=== PATIENT | female | born 1945 | race Caucasian/White ===

== ENCOUNTER 2018-09-27 07:15 | Inpatient (IN) | payer OTHER ==
[2018-09-27] MEDS ORDERED: THROMBIN (BOVINE) 20,000 UNIT VIAL TP ONE (11:24)
[2018-09-27] MEDS ORDERED: BUPIVACAINE 0.25% 30 ML SDV ONE (11:25)
[2018-09-27] MEDS ORDERED: CHLORHEXIDINE GLUC HIBICLENS 118 ML BTL TP ONE (11:25)
[2018-09-27] MEDS ORDERED: EPINEPHrine 1 MG/ML INJ ONE (11:25)
[2018-09-27] MEDS ORDERED: BACITRACIN 50,000 UNITS/10 ML SYR IRR ONE (11:26)
[2018-09-27] MEDS ORDERED: THROMBIN (BOVINE) 5,000 UNIT VIAL TP ONE (11:27)
[2018-09-27] MEDS ORDERED: morphINE PF 0.2 MG in SYRINGE INTRATHECAL 1 SYR IT ONE (11:39)
[2018-09-27] MEDS ORDERED: ACETAMINOPHEN 500 MG TAB PO ONE (11:39)
[2018-09-27] MEDS ORDERED: ceFAZolin 2 GM/DEXTROSE 100 ML IV ONE (11:39)
[2018-09-27] MEDS ORDERED: GABAPENTIN 300 MG CAP PO ONE (11:39)
[2018-09-27] MEDS ORDERED: morphINE SR 15 MG TAB PO ONE (11:39)
[2018-09-27] MEDS ORDERED: LR 1,000 ML IV ONE (11:40)
--- NOTE | 2018-09-27 13:08 | PDHPUP ---
History & Physical Update H&P update statement: This history and physical update is based on an assessment of the patient which was completed after admission or registration (within 24 hours), but prior to the surgery/procedure. H&P update: H&P reviewed & patient examined, no change in patient's condition since H&P completed (Consents signed and site marked. All questions answered.)
[2018-09-27] MEDS ORDERED: PROPOFOL/EMULSION 500 MG/50 ML BOTTLE IV ONE ×3 (13:16→16:06)
[2018-09-27] MEDS ORDERED: fentaNYL 250 MCG/5 ML INJ ONE (13:18)
[2018-09-27] MEDS ORDERED: MIDAZOLAM 2 MG/2 ML VIAL ONE (13:28)
[2018-09-27] MEDS ORDERED: MIDAZOLAM 2 MG/2 ML VIAL IVP ONE (14:05)
[2018-09-27] MEDS ORDERED: HYDROmorphONE/DILAUDID 2 MG/ML INJ ONE (14:50)
--- NOTE | 2018-09-27 15:08 | PDANEPAE ---
ANE History of Present Illness 73 year old female for L2-L4 laminectomy and TLIF. Obesity, HTN and history of TIA. ANE Past Medical History - Cardiovascular History Hx Hypertension: Yes Hx Arrhythmias: No Hx Chest Pain: No Hx Coronary Artery / Peripheral Vascular Disease: No Hx CHF / Valvular Disease: No Hx Palpitations: No Cardiovascular History Comment: high chol. pcp monitors bp medications - Pulmonary History Hx COPD: No Hx Asthma/Reactive Airway Disease: No Hx Recent Upper Respiratory Infection: No Hx Oxygen in Use at Home: No Hx Sleep Apnea: Yes Sleep Apnea Screening Result - Last Documented: Positive Pulmonary History Comment: karley triggers - Neurologic History Hx Cerebrovascular Accident: Yes Hx Seizures: No Hx Dementia: No Neurologic History Comment: CVA - on plavix found out via MRI for vertigo. no more issues with vertigo. feet have recently started tingling - Endocrine History Hx Diabetes: No - Renal History Hx Renal Disorders: No - Liver History Hx Hepatic Disorders: No - Neurological & Psychiatric Hx Hx Neurological and Psychiatric Disorders: No - Cancer History Hx Cancer: No - Congenital Disorder History Hx Congenital Disorders: No - GI History Hx Gastrointestinal Disorders: Yes Gastrointestinal History Comment: hx of lap band - Other Health History Other Health History: bleeds easily - Chronic Pain History Chronic Pain: Yes (lower spine down to legs) - Surgical History Prior Surgeries: left TKA. lap band. hysterectomy. ruptured ectopic . tonsillectomy as child ANE Review of Systems Review of systems is: negative Review of Systems: - Exercise capacity METS (RN): 4 METS ANE Patient History - Allergies Allergies/Adverse Reactions: latex Allergy (Verified 09/27/18 12:05) Rash - Home Medications Home Medications: Atorvastatin Calcium [Lipitor 20 mg (*)] 10 mg PO DAILY 05/10/15 [Last Taken 01/13] Benazepril HCl 40 mg PO DAILY 09/16/18 [Last Taken 09/26/18] Cholecalciferol Vit D3 [Vitamin D3 (*)] 1,000 units PO DAILY 09/16/18 [Last Taken 09/20/18] Clopidogrel Bisulfate [Plavix (*)] 75 mg PO DAILY 09/16/18 [Last Taken 09/20/18] Cyanocobalamin [Vitamin B12 (*)] 1,000 mcg PO DAILY 09/16/18 [Last Taken ] Gabapentin [Neurontin 300 MG (*)] 300 mg PO TID 09/16/18 [Last Taken Unknown] Hydrochlorothiazide [HCTZ (*)] 25 mg PO HS 09/16/18 [Last Taken 09/26/18] - NPO status NPO Since - Liquids (Date): 09/27/18 NPO Since - Liquids (Time): 08:00 NPO Since - Solids (Date): 09/26/18 NPO Since - Solids (Time): 20:00 - Smoking Hx Smoking Status: Never smoked - Family Anes Hx Family Hx Anesthesia Complications: none ANE Labs/Vital Signs - Vital Signs Blood Pressure: 163/83 Heart Rate: 76 Respiratory Rate: 19 O2 Sat (%): 95 Height: 157.48 cm Weight: 90.718 kg ANE Physical Exam - Airway Neck exam: FROM Mallampati Score: Class 3 Mouth exam: small mouth opening - Pulmonary Pulmonary: no respiratory distress - Cardiovascular Cardiovascular: regular rate and rhythym - ASA Status ASA Status: III ANE Anesthesia Plan Anesthesia Plan: general endotracheal anesthesia Specialized Airway: video laryngoscope
[2018-09-27] MEDS ORDERED: ONDANSETRON 4 MG/2 ML VIAL IVP PRN ×2 (15:10→15:16)
[2018-09-27] MEDS ORDERED: ALBUTEROL 3 ML DEYVIAL IH PRN (15:10)
[2018-09-27] MEDS ORDERED: DEXAMETHASONE 4 MG/ML VIAL IVP PRN (15:10)
[2018-09-27] MEDS ORDERED: LABETALOL HCL 5 MG/ML 20 ML MDV IVP PRN (15:10)
[2018-09-27] MEDS ORDERED: LR 500 ML IV PRN (15:10)
[2018-09-27] MEDS ORDERED: fentaNYL 100 MCG/2 ML INJ IVP PRN (15:10)
[2018-09-27] MEDS ORDERED: HYDROmorphONE/DILAUDID 2 MG/ML INJ IVP PRN (15:10)
[2018-09-27] MEDS ORDERED: NALOXONE HCL 0.4 MG/ML INJ IVP PRN (15:10)
[2018-09-27] MEDS ORDERED: POLYETHYLENE GLYCOL 3350 17 GM PKT PO PRN (15:16)
[2018-09-27] MEDS ORDERED: diphenhydrAMINE 25 MG CAP PO PRN (15:16)
[2018-09-27] MEDS ORDERED: MAGNESIUM HYDROXIDE 30 ML UDCUP PO PRN (15:16)
[2018-09-27] MEDS ORDERED: LACTULOSE 20 GM/30 ML UDCUP PO PRN (15:16)
[2018-09-27] MEDS ORDERED: ONDANSETRON DISINTEGRATING 4 MG TAB PO PRN (15:16)
[2018-09-27] MEDS ORDERED: BISACODYL 10 MG SUPP PR PRN (15:16)
[2018-09-27] MEDS ORDERED: METHOCARBAMOL 750 MG TAB PO PRN (15:16)
[2018-09-27] MEDS ORDERED: DESFLURANE 240 ML BOTTLE IH ONE (16:59)
--- NOTE | 2018-09-27 17:06 | PDMN ---
Medical Necessity Medical necessity: Pt meets inpt criteria per MD order and [facility], Lumbar Fusion, Medicare inpt only list. 73 y/o admitted for L2, L3, L4 TLIF, lami- synovial cyst resection, L2-L4 PSF and post-op care.
--- NOTE | 2018-09-27 17:46 | POSTANESTH ---
Post Anesthetic Evaluation Cardiovascular Status: Normal, Stable Respiratory Status: Normal, Stable Level of Consciousness/Mental Status: Moderately Sleepy Pain Control: Adequate, Prn Tx Ordered Nausea/Vomiting Control: Adequate, Prn Tx Ordered Complications Possibly Related to Anesthesia: None Noted
[2018-09-27] MEDS: ceFAZolin 2 GM/DEXTROSE 100 ML IV SCH (17:56)
--- NOTE | 2018-09-27 18:52 | NEUSURGPN ---
Date of Surgery: 09/27/18 Post Op Day: 0 Assessment/Plan: POD # 1 s/p L2-L4 meagan and posterior fusion.TLIF L2/3/4 with synovial cyst resection - doing well overall with no acute issues - routine post-operative care - will admit to the floor and mobilize in am - FREDO to suction - PT/To/therapies - brace whenever out of bed Subjective: pain appears to be well controlled with no new complaints Objective: SILVERIO X 4 to command full strength with bilateral LE hip flexion/extension, plantar/dorsiflexion - sensation intact throughout B LE - dressing C/D/I - FREDO to thumbprint suction - Physician Patient Seen by DrRomana: Jennifer Neurosurgery Physical Exam - Vitals, I&O, Labs I and O 09/26/18 09/27/18 09/28/18 05:59 05:59 05:59 Intake Total 2300 Output Total 535 Balance 1765 Weight 90.718 kg Intake: IV Intake (ml) 2200 IV Infused (ml) 100 ceFAZolin 2 GM/DEXTROSE 100 100 ml @ 200 mls/hr IV Q8H NILSON Rx#:[id number] Output: Urine (ml) 200 Catheter 200 Estimated Blood Loss (ml) 300 FREDO Drain Output (ml) 35 #1 Posterior Back Edgardo 35 Otto Vital Signs Temp Pulse Resp BP Pulse Ox 36.6 C 72 16 125/65 H 93 09/27/18 18:07 09/27/18 17:48 09/27/18 18:47 09/27/18 18:47 09/27/18 18:47 ICD10 Worksheet Patient Problems: Problems Problem Status Onset Lumbago with sciatica, unspecified side Acute - ICD10 Problem Qualifiers (1) Lumbago with sciatica, unspecified side Qualifiers: Chronicity: chronic Back pain laterality: midline Sciatica laterality: bilateral sciatica Qualified Code(s): M54.41 - Lumbago with sciatica, right side; M54.42 - Lumbago with sciatica, left side; M54.42 - Lumbago with sciatica , left side; G89.29 - Other chronic pain; G89.29 - Other chronic pain
[2018-09-27] MEDS: GABAPENTIN 300 MG CAP PO SCH ×2 (20:05→21:08)
[2018-09-27] MEDS: HYDROCHLOROTHIAZIDE 25 MG TAB PO SCH (21:06)
[2018-09-27] MEDS: SENNOSIDES/DOCUSATE SODIUM TAB PO SCH (21:06)
[2018-09-27] MEDS: FAMOTIDINE 20 MG TAB PO SCH (21:08)
[2018-09-27] MEDS: ACETAMINOPHEN 500 MG TAB PO SCH (21:08)
[2018-09-27] MEDS ORDERED: DILTIAZEM 25 MG/5 ML VIAL IVP ONE (22:30)
[2018-09-27] MEDS ORDERED: DILTIAZEM 125 MG in D5W 125 ML IV SCH (23:45)
--- NOTE | 2018-09-28 00:26 | PDHOSCONS ---
History and Physical - History of Present Illness I WAS CALLED TO SEE THIS PATIENT IS PART OF A STAT TEAM FOR POSTOPERATIVE TACHYCARDIA HEART RATE 170S TO 180S This patient came into the hospital electively for lumbar spine surgery which she had done earlier today by Dr. Kay without complication. She has been on the 3 [place] unit since then feeling quite well. She has been eating, has no fever symptoms no neurologic symptoms no cardiac or pulmonary symptoms. Nurses note her to be very tachycardia and EKG has showed rapid atrial fibrillation. The patient has no chest pain palpitations shortness of breath leg pain or swelling. There is no fever The patient has no history of atrial fibrillation or any other cardiac history of concern. She had a childhood heart murmur which apparently still present but has never caused her physicians any concern. She has not recurred followed regularly for this. She did have some cardiology assessment including a echocardiogram before this surgery and says there were no concerning findings but I do not have any records available. The patient is a never smoker, does not drink any concerning alcohol, does not have known thyroid troubles, does not have any significant family history of heart disease that she is aware of. She has no thromboembolic disease history. She has minimal pain from her surgery at this time. History Information - Allergies/Home Medication List Allergies/Adverse Reactions: latex Allergy (Verified 09/27/18 12:05) Rash Home Medications: Atorvastatin Calcium [Lipitor 20 mg (*)] 10 mg PO DAILY 05/10/15 [Last Taken 01/13] Benazepril HCl 40 mg PO DAILY 09/16/18 [Last Taken 09/26/18] Cholecalciferol Vit D3 [Vitamin D3 (*)] 1,000 units PO DAILY 09/16/18 [Last Taken 09/20/18] Clopidogrel Bisulfate [Plavix (*)] 75 mg PO DAILY 09/16/18 [Last Taken 09/20/18] Cyanocobalamin [Vitamin B12 (*)] 1,000 mcg PO DAILY 09/16/18 [Last Taken ] Gabapentin [Neurontin 300 MG (*)] 300 mg PO TID 09/16/18 [Last Taken Unknown] Hydrochlorothiazide [HCTZ (*)] 25 mg PO HS 09/16/18 [Last Taken 09/26/18] I have personally reviewed and updated: family history, medical history, social history, surgical history - Past Medical History arthritis, CVA Additional medical history: Lumbar spine stenosis - Social History Smoking Status: Never smoked Alcohol Use: Rarely Drug Use: None Additional social history: lives with her who is a Pharm D Review of Systems Review of Systems: ROS: 10pt was reviewed & negative except for what was stated in HPI & below Physical Exam Physical Exam: Her initial vital signs were normal after her surgery, however this evening she had sudden onset of tachycardia with heart rates to the 170s and 80s and she still having irregular heart rate in the 170s 180s as I visit her. Temp Pulse Resp BP Pulse Ox 36.6 C 78 16 122/65 H 97 09/28/18 00:00 09/28/18 00:00 09/28/18 00:00 09/28/18 00:00 09/28/18 00:00 O2 (L/minute) 3 Constitutional: no apparent distress, not in pain Eyes: PERRL Ears, Nose, Mouth, Throat: moist mucous membranes, hearing normal, ears appear normal Cardiovascular: no murmur, rub, or gallop, irregularly irregular, pulses symmetric bilaterally, tachycardia, No JVD, No carotid bruit, No edema Respiratory: no respiratory distress, no rales or rhonchi, clear to auscultation Gastrointestinal: normoactive bowel sounds, soft, non-tender abdomen Skin: warm, normal color, no rashes or abrasions Neurologic: AAOx3, sensation intact bilaterally, CN II-XII Intact, No weakness, No numbness, No pronator drift Psychiatric: interacting appropriately, not anxious, not encephalopathic Lymph, Heme, Immunologic: no cervical LAD, no supraclavicular LAD Lab Data & Imaging Review Visualized and Interpreted EKG results: Yes EKG Interpretation: Positive for: other (Rapid atrial fibrillation without ischemic abnormalities noted) Assessment & Plan Assessment: * acute rapid atrial fibrillation, 1st ever episode, in a postoperative setting * heart rates are quite rapid in the 170s to 180s initially but stable blood pressure and respirations with clear lungs and no hypoxemia * postop after spine surgery earlier today, otherwise quite stable. I reviewed with the patient and her the nature of atrial fibrillation, the complications including heart failure stroke another. I reviewed the treatment rationale and monitoring. It sounds like she may have had an echo just a week or 2 ago in the [facility]iology [facility] and I will see if I can get Cardiology here to find that result for us otherwise will need a new echocardiogram. It would be reasonable to check a TSH. At this point she is tolerating this rapid AFib well and aside from rate control and anticoagulation we will need other therapy. She would be a candidate for possible electric cardioversion if she does not cardiovert on her own. At the moment I am not suspecting ischemia but we can check troponins and follow her EKGs and symptoms closely. There is no sign of heart failure. She will be transferred to the 2nd floor where we can monitor her very closely. I have spoken with the physician wet process assistant head miller from the Neurosurgery team matt and he will contact the on-call surgeon to review anticoagulation issues. He was not certain if they would feel safe with full-dose anticoagulation yet at this time and so I am waiting to hear back from them. She is on low-dose anticoagulation at present. For rate control and starting with a diltiazem drip.
[2018-09-28] MEDS: ceFAZolin 2 GM/DEXTROSE 100 ML IV SCH (02:40)
[2018-09-28] MEDS: ACETAMINOPHEN 500 MG TAB PO SCH ×3 (05:20→21:01)
--- NOTE | 2018-09-28 06:33 | GOP ---
DATE OF OPERATION: 09/27/2018 SURGEON: Vijay Rodriguez MD NEW ORDER CLERK: NAMRATA Haider. ANESTHESIA: General. PREOPERATIVE DIAGNOSIS: 1. L2 through L4 lumbar stenosis with spondylosis. 2. Severe spinal stenosis, secondary to synovial cyst.. 3. Lower extremity radiculopathy and weakness. 4. Treatment refractory to nonoperative intervention. POSTOPERATIVE DIAGNOSIS: 1. L2 through L4 lumbar stenosis with spondylosis. 2. Severe spinal stenosis, secondary to synovial cyst.. 3. Lower extremity radiculopathy and weakness. 4. Treatment refractory to nonoperative intervention. PROCEDURE PERFORMED: 1. Posterior arthrodesis with approach to L2, L3, and L4. 2. Posterolateral fusion with bilateral pedicle screw placement L2, L3, and L4 from the [employer] 4.75 system. 3. Decompressive laminectomy with bilateral medial facetectomies at L2-L3 and L3-L4, as well as synovial cyst resection on the left at the L3-L4 level. 4. Left-sided L2-L3 and L3-L4 facetectomies. 5. Left-sided L2-3 transforaminal lumbar interbody fusion with a 7 x 23 mm titanium PEEK Elevate cage filled with morselized autograft and allograft. 6. Left-sided L3-4 transforaminal lumbar interbody fusion with a 7 x 23 mm titanium PEEK Elevate cage filled with morselized autograft and allograft. 7. Right-sided posterolateral fusion between L2 and L4 with morselized autograft and allograft. 8. Use of intraoperative 3D Stealth navigation. 9. Use of intraoperative fluoroscopy, less than 1 hour physician time. 10. Use of neuromonitoring. 11. Use of the operating microscope. 12. Injection of preservative-free intrathecal narcotics. FINDINGS: per imaging SPECIMENS: None. ESTIMATED BLOOD LOSS: 250 mL. INDICATIONS: Ms. Chilel is a very pleasant 73-year-old, who presented to my office with low back pain and lower extremity radiculopathy, including some left lower extremity weakness. Imaging demonstrates severe spinal stenosis L2 through L4 with a large synovial cyst at the L3-4 level. After discussion of the risks, benefits, and treatment alternatives, and after failing nonoperative intervention, we decided to proceed forth with surgery as described above. DESCRIPTION OF PROCEDURE: Patient was brought to the operative theater and underwent general endotracheal anesthesia without complications. She had Venodynes, JUDITH hose, and the appropriate lines placed by Anesthesia. She was flipped prone on the Edgardo table, and all bony prominences were inspected and padded. The lower lumbar region was prepped and draped in usual sterile surgical fashion. A time-out was completed per protocol, and the patient received antibiotics within 1 hour of incision. Using lateral fluoroscopy and a spinal needle, we picked our entry point at the L2 through L4 levels. This was marked in the midline. The incision was infiltrated with Marcaine with epinephrine. The incision was then taken down with the scalpel blade and using monopolar, taken down to midline through the lumbodorsal fascia. A subperiosteal dissection was carried out to the transverse process of L2, L3, and L4. Care was taken to preserve the bilateral L1-L2 facet joint. Deep retractors were placed to maintain our exposure, and we confirmed our level using lateral fluoroscopy. We attached the 3D Stealth navigation clamp to the spinous process of L4, and completed a 3D Stealth navigation spin. Using 3D Stealth navigation, we placed the high school combination teacher holes for the bilateral pedicle screws in L2, L3, and L4. All holes were manually palpated with no evidence of any cortical breaches. We then tapped and placed 6.5 x 45 mm screws bilaterally in L2, L3, and L4, all from [employer] 4.75 system. Another 3D Stealth navigation spin demonstrated good placement of the hardware. At this point, the microscope was brought into the field to assist with microscopic dissection and to maintain illumination and magnification. Using a combination of the bur tip on the drill bit, Kerrison punches and Leksell rongeur, we completed a decompressive laminectomy with bilateral medial facetectomies of L2-L3, and L3-L4. We also completed aggressive facetectomies on the left side between L2-L3 and L3-L4. She had evidence of a compressive synovial cyst on the left at L3-4, which we used microsurgical technique to decompress and enucleate. We then moved up to the L2-3 level. We distracted the interspace and completed a left-sided L2-3 diskectomy. We prepared the cartilaginous endplates and measured the interbody space. We then placed 7 x 23 mm titanium PEEK Elevate cage filled with morselized autograft and allograft anteriorly and toward the midline. We packed additional morcellized autograft into the disk space for the interbody fusion. We let down the distraction and moved down to the L3-4 level where we distracted the interspace and completed a left-sided L3-4 diskectomy. We prepared the cartilaginous endplates and measured the interbody space. We placed a 7 x 23 mm titanium PEEK Elevate cage filled with morselized autograft and allograft anteriorly and toward the midline. We packed additional morcellized autograft in the disk space for interbody fusion. We let down distraction and decorticated the bone on the right side between L2 and L4. The wound was irrigated copiously with bacitracin irrigation. We placed 2 lordotic rods in the heads of the screws between L2 and L4, and secured them down with cap screws, which were then tightened to the neurologist's setting. We injected preservative-free intrathecal narcotics. We placed morselized autograft and allograft on the right side between L2 and L4 for the posterolateral fusion. A drain was left in the subfascial space, and wound then closed in multiple layers using Vicryl sutures for the deep layers and Dermabond for the skin. The patient's wound was dressed sterilely. She was then flipped supine onto the transfer cart. She was awakened, extubated, and taken to recovery room in stable condition. There were no complications and no noted changes on neuromonitoring throughout the procedure. The use of the PA was crucial to retracting and protecting critical structures intraoperatively. COMPLICATIONS: None. /[id number]/MODL MTDD
--- NOTE | 2018-09-28 08:29 | SOAPPROG ---
SOAP Progress Note Assessment/Plan: Assessment: 73 yo F POD #1 L2/3, L3/4 TLIF with uncontrolled afib the night of pod 0 Plan: neuro: stable and doing well overall a-fib, converted to sinus rhythm on 09/27, appreciate cardiology/Hospitalists help Dr Jennifer toscano with heparin drip (no bolus) starting 09/29 if needed for anticoagulation scd/michelle/lovenox for dvt prophylaxis PT/OT x-rays of lumbar spine pending please call with neuro changes discussed with Dr Rodriguez 09/28/18 08:26 Subjective: back pain improving, no leg pain, no weakness. Objective: Vital Signs Temp Pulse Resp BP Pulse Ox 37.0 C 79 18 122/58 H 2 L 09/28/18 08:06 09/28/18 08:06 09/28/18 08:06 09/28/18 08:06 09/28/18 08:06 09/27/18 09/28/18 09/29/18 05:59 05:59 04:59 Intake Total 3800 Output Total 1030 Balance 2770 AAOX4, +FC PERRL, EOMI, no facial droop 5/5 + light touch C/D/I ICD10 Worksheet Patient Problems: Problems Problem Status Onset Lumbago with sciatica, unspecified side Acute
[2018-09-28] MEDS: BENAZEPRIL HCL 20 MG TAB PO SCH (08:56)
[2018-09-28] MEDS: SENNOSIDES/DOCUSATE SODIUM TAB PO SCH ×2 (08:57→21:02)
[2018-09-28] MEDS: ATORVASTATIN CALCIUM 20 MG TAB PO SCH (08:57)
[2018-09-28] MEDS: CYANO/VITAMIN B12 1000 MCG TAB PO SCH (08:57)
[2018-09-28] MEDS: GABAPENTIN 300 MG CAP PO SCH ×3 (08:57→21:02)
[2018-09-28] MEDS: FAMOTIDINE 20 MG TAB PO SCH ×2 (08:57→21:02)
[2018-09-28] MEDS: CHOLECALCIFEROL VIT D3 1,000 UNITS TAB PO SCH (08:57)
--- NOTE | 2018-09-28 10:43 | HOSPPROG ---
Hospitalist Progress Note Assessment/Plan: Post-op a fib - converted to NSR after IV dilt bolus, remains in NSR. This was brief episode. Will defer initiation of anticoagulation unless recurs. -repeat EKG to confirm NSR -check tsh, nl -will obtain echo report from [facility], done recently -cont telemetry monitoring, consider outpt cardiac event monitor S/P Lumbar fusion - post-op care per surgery DVT PPLX - Lovenox Dispo - full code Subjective: Pt feels better. Says she never felt the a fib last night. Denied palpitations, cp or sob. Feels ok today, some expected post-op pain, but she is ambulating. Objective: Vital Signs Temp Pulse Resp BP Pulse Ox 37.0 C 79 18 122/58 H 2 L 09/28/18 08:06 09/28/18 08:06 09/28/18 08:06 09/28/18 08:06 09/28/18 08:06 09/27/18 09/28/18 09/29/18 05:59 05:59 04:59 Intake Total 3800 600 Output Total 1030 50 Balance 2770 550 - Physical Exam Constitutional: no apparent distress Eyes: PERRL Ears, Nose, Mouth, Throat: moist mucous membranes Cardiovascular: regular rate and rhythym Respiratory: no respiratory distress Gastrointestinal: normoactive bowel sounds, soft, non-tender abdomen Skin: warm Musculoskeletal: full muscle strength Neurologic: AAOx3 Psychiatric: interacting appropriately ICD10 Worksheet Patient Problems: Problems Problem Status Onset Lumbago with sciatica, unspecified side Acute
[2018-09-28] MEDS: ENOXAPARIN 40 MG/0.4 ML SYR SC SCH (17:42)
[2018-09-28] MEDS: HYDROCHLOROTHIAZIDE 25 MG TAB PO SCH (21:04)
[2018-09-29] MEDS: oxyCODONE IR 5 MG TAB PO PRN ×3 (03:53→20:31)
[2018-09-29] MEDS: ACETAMINOPHEN 500 MG TAB PO SCH ×3 (05:45→20:31)
--- NOTE | 2018-09-29 06:31 | SOAPPROG ---
SOAP Progress Note Assessment/Plan: Assessment: 73 yo F POD #2 L2/3, L3/4 TLIF with uncontrolled afib the night of pod 0 Plan: neuro: stable and doing well overall a-fib, converted to sinus rhythm on 09/27, appreciate cardiology/Hospitalists help scd/michelle/lovenox for dvt prophylaxis PT/OT x-rays of lumbar spine look good likely dc home tomorrow please call with neuro changes 09/28/18 08:26 09/29/18 06:30 Subjective: + back pain, no leg pain, no weakness. No cp/sob Objective: Vital Signs Temp Pulse Resp BP Pulse Ox 36.6 C 76 21 H 127/68 H 99 09/29/18 03:59 09/29/18 03:59 09/29/18 03:59 09/29/18 03:59 09/29/18 03:59 09/28/18 09/29/18 09/30/18 06:59 05:59 05:59 Intake Total Output Total 400 Balance -400 AAOx4, +FC PERRL, EOMI, no facial drop 5/5 + light touch C/D/I ICD10 Worksheet Patient Problems: Problems Problem Status Onset Lumbago with sciatica, unspecified side Acute
[2018-09-29] MEDS: BENAZEPRIL HCL 20 MG TAB PO SCH (08:09)
[2018-09-29] MEDS: FAMOTIDINE 20 MG TAB PO SCH ×2 (08:10→20:31)
[2018-09-29] MEDS: CYANO/VITAMIN B12 1000 MCG TAB PO SCH (08:10)
[2018-09-29] MEDS: GABAPENTIN 300 MG CAP PO SCH ×3 (08:10→20:31)
[2018-09-29] MEDS: CHOLECALCIFEROL VIT D3 1,000 UNITS TAB PO SCH (08:10)
[2018-09-29] MEDS: ATORVASTATIN CALCIUM 20 MG TAB PO SCH (08:10)
[2018-09-29] MEDS: ENOXAPARIN 40 MG/0.4 ML SYR SC SCH (08:10)
[2018-09-29] MEDS: SENNOSIDES/DOCUSATE SODIUM TAB PO SCH ×2 (08:10→20:31)
[2018-09-29] MEDS ORDERED: NS 500 ML IV ONE (12:32)
--- NOTE | 2018-09-29 12:41 | HOSPPROG ---
Hospitalist Progress Note Assessment/Plan: Post-op a fib - converted to NSR after IV dilt bolus, remains in NSR. This was brief episode, ~10 min. Chads-vasc 3 (age, htn, gender). TSH nl. 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 No recurrent a fib. No CP or SOB. BP a little low after oxycodone today, she denies dizziness or lightheadedness. Ambulating. Objective: Vital Signs Temp Pulse Resp BP Pulse Ox 36.8 C 82 19 90/52 L 96 09/29/18 11:07 09/29/18 11:07 09/29/18 11:07 09/29/18 11:07 09/29/18 11:07 09/28/18 09/29/18 09/30/18 06:59 05:59 05:59 Intake Total Output Total 400 Balance -400 - Physical Exam Constitutional: no apparent distress Eyes: PERRL Ears, Nose, Mouth, Throat: moist mucous membranes Cardiovascular: regular rate and rhythym, systolic murmur Respiratory: no respiratory distress, clear to auscultation Gastrointestinal: normoactive bowel sounds, soft, non-tender abdomen Skin: warm Musculoskeletal: full muscle strength Neurologic: AAOx3 Psychiatric: interacting appropriately ICD10 Worksheet Patient Problems: Problems Problem Status Onset Lumbago with sciatica, unspecified side Acute
--- NOTE | 2018-09-29 13:10 | PDHOMEO2F ---
Home Oxygen Face to Face Home Orders: I certify that a physician or a nurse practitioner or physician's assistant surveyor has had a [id number] encounter with this patient on the date of this order due to the diagnosis listed, which relates to the primary reason the patient requires home oxygen. Alternative treatments have been tried, or considered, and deemed ineffective. It is anticipated that supplemental oxygen will result in improvement with treatment. Home oxygen qualifying diagnosis: sleep apnea SpO2 on room air (%): 82 Frequency of home oxygen needed: during sleep Home oxygen liters per minute: 2 LPM Home oxygen delivery device: nasal cannula Concentrator: No E-tanks for mobility and back up: No I certify that, based on these findings, the home oxygen is medically necessary for this patient for the following length of time. Length of time home oxygen needed: 3 months
--- NOTE | 2018-09-29 14:57 | CPEKG ---
Test Reason : OPEN Blood Pressure : / mmHG Vent. Rate : 169 BPM Atrial Rate : 158 BPM P-R Int : 072 ms QRS Dur : 070 ms QT Int : 288 ms P-R-T Axes : 000 044 000 degrees QTc Int : 483 ms Atrial fibrillation with rapid V-rate Repolarization abnormality, prob rate related Confirmed by Denny Gu ([id number]) on 09/29/2018 2:56:17 PM Referred By: Confirmed By:Denny Gu
--- NOTE | 2018-09-29 15:24 | ASMTCMCOM ---
CM Note CM Note Notes: Patient chart reviewed. She is s/p laminectomy and cyst resection. Had episode of afib, now NSR. Per therapy likely to be able to dc with outpatient therapy. CM to follow for needs. Plan: TBD Date Signed: 09/29/2018 03:23 PM Electronically Signed By:Sandhya Cr RN
[2018-09-30] MEDS: oxyCODONE IR 5 MG TAB PO PRN ×2 (05:45→10:38)
[2018-09-30] MEDS: ACETAMINOPHEN 500 MG TAB PO SCH (05:46)
[2018-09-30] MEDS: GABAPENTIN 300 MG CAP PO SCH (08:01)
[2018-09-30] MEDS: FAMOTIDINE 20 MG TAB PO SCH (08:01)
[2018-09-30] MEDS: ENOXAPARIN 40 MG/0.4 ML SYR SC SCH (08:01)
--- NOTE | 2018-09-30 08:01 | NEUSURGPN ---
Date of Surgery: 09/27/18 Post Op Day: 3 Assessment/Plan: Assessment: 73 yo F POD #3 L2/3, L3/4 TLIF with uncontrolled afib the night of pod 0 Plan: Overall doing well DC FREDO drain prior to discharge a-fib, converted to sinus rhythm on 09/27, appreciate cardiology/Hospitalists help scd/michelle/lovenox for dvt prophylaxis PT/OT x-rays of lumbar spine look good DC home today Ok to restart Plavix on POD#[address] Rodriguez please call with neuro changes Subjective: sitting in chair, doing well Objective: AxO x3 MAEx4 5/5 BUE, BLE Sensation intact to light touch BLE Dressing CDI-incision CDI with dermabond, FREDO patent Neuro Check Frequency: per routine Urinary Catheter in Place: No Catheter Insertion Date: 09/27/18 - Physician Discussed Patient with Dr.: Rodriguez Neurosurgery Physical Exam - Vitals, I&O, Labs I and O 09/29/18 09/30/18 10/01/18 05:59 05:59 05:59 Intake Total 1290 Output Total 1600 Balance -310 Intake: Oral (ml) 790 IV Intake (ml) 500 Output: Urine (ml) 1550 Catheter Toilet 1550 FREDO Drain Output (ml) 50 #1 Posterior Back Edgardo 50 Otto Other: Intake Quantity Sufficient Number of Voids Toilet 1 Post Void Residual Scan Volume (ml) Toilet Vital Signs Temp Pulse Resp BP Pulse Ox 36.8 C 80 16 134/69 H 97 09/30/18 07:25 09/30/18 07:25 09/30/18 07:25 09/30/18 07:25 09/30/18 07:46 ICD10 Worksheet Patient Problems: Problems Problem Status Onset Lumbago with sciatica, unspecified side Acute
[2018-09-30] MEDS: CHOLECALCIFEROL VIT D3 1,000 UNITS TAB PO SCH (08:02)
[2018-09-30] MEDS: SENNOSIDES/DOCUSATE SODIUM TAB PO SCH (08:02)
[2018-09-30] MEDS: CYANO/VITAMIN B12 1000 MCG TAB PO SCH (08:02)
[2018-09-30] MEDS: ATORVASTATIN CALCIUM 20 MG TAB PO SCH (08:02)
[2018-09-30] MEDS ORDERED: BENAZEPRIL HCL 20 MG TAB PO SCH (09:00)
[2018-09-30 12:04] VITALS: BP 120/63
--- NOTE | 2018-09-30 12:25 | ASMTLACE ---
LACE Length of stay for Answers: 3 days current admission Acuity / Level of Answers: Yes Care: Did the patient have an inpatient admission? Comorbidities - select Answers: Cerebrovascular disease all that apply (CVA, TIA, aneurysms, vasc ular dementia) Congestive heart failure Diabetes (uncontrolled or controlled) # of Emergency department Answers: 0 visits in the last 6 months Score: 10 Date Signed: 09/30/2018 12:16 PM Electronically Signed By:Arpita Hyman RN
--- NOTE | 2018-09-30 12:27 | ASMTDCNOTE ---
Case Management Discharge Discharge Order Complete? Answers: Yes Patient to Obtain Answers: Independently Medications Transportation Arranged Answers: Family/Friends Discharge Comments Notes: 09/30/2018 Case Management Note PT recommending out patient rehab. No further case mangement d/c needs identified. Date Signed: 09/30/2018 12:17 PM Electronically Signed By:Arpita Hyman RN
--- NOTE | 2018-09-30 12:44 | ASDISCHSUM ---
Discharge Information Plan Status:Home with DME or Oxygen Medically Cleared to Leave:09/29/2018 Discharge Date:09/30/2018 12:37 PM CM D/C Disposition:Home, Routine, Self-Care ADT D/C Disposition:Home, Routine, Self-Care Projected Discharge Date:09/30/2018 12:37 PM Transportation at D/C: Discharge Delay Reason: Follow-Up Date:09/30/2018 12:37 PM Discharge Slot: Final Diagnosis: Placement Information Patient Contact Information Contact Name:CAMELIA Relationship: Address:[address] [address] City:[place] Alternate Phone: [facility]/Zip Code:[place] [address] Email: Financial Information Financial Class:[email or web address] Primary Plan Desc:[facility] Primary Plan Number:[id number] Secondary Plan Desc: Secondary Plan Number: Assessment Information LACE LACE Length of stay for Answers: 3 days current admission Acuity / Level of Answers: Yes Care: Did the patient have an inpatient admission? Comorbidities - select Answers: Cerebrovascular disease all that apply (CVA, TIA, aneurysms, vasc ular dementia) Congestive heart failure Diabetes (uncontrolled or controlled) # of Emergency department Answers: 0 visits in the last 6 months Score: 10 Date Signed: 09/30/2018 12:16 PM Electronically Signed By:Arpita Hyman RN [facility] CM Progress Note CM Note CM Note Notes: Patient chart reviewed. She is s/p laminectomy and cyst resection. Had episode of afib, now NSR. Per therapy likely to be able to dc with outpatient therapy. CM to follow for needs. Plan: TBD Date Signed: 09/29/2018 03:23 PM Electronically Signed By:Sandhya Cr RN Case Management Discharge Plan Note Case Management Discharge Discharge Order Complete? Answers: Yes Patient to Obtain Answers: Independently Medications Transportation Arranged Answers: Family/Friends Discharge Comments Notes: 09/30/2018 Case Management Note PT recommending out patient rehab. No further case mangement d/c needs identified. Date Signed: 09/30/2018 12:17 PM Electronically Signed By:Arpita Hyman RN Intervention Information
--- NOTE | 2018-10-01 12:22 | CPEKG ---
Test Reason : OPEN Blood Pressure : / mmHG Vent. Rate : 071 BPM Atrial Rate : 071 BPM P-R Int : 113 ms QRS Dur : 084 ms QT Int : 409 ms P-R-T Axes : 026 010 025 degrees QTc Int : 445 ms Sinus rhythm Low voltage, precordial leads Normal sinus rhythm has replaced atrial fibrillation noted on prior ECG Confirmed by Eldon Curtis ([id number]) on 10/01/2018 12:22:07 PM Referred By: Confirmed By:Eldon Curtis
== END 2018-09-30 12:37 | disposition home or self-care (01) | DRG 455 ==
LOC: F3N 11:20 → F2W 09-28 00:03
PROVIDERS: ADMIT Neurological Surgery; ATTEND Neurological Surgery
PROC: 0SG10AJ Fusion of 2 or more Lumbar Vertebral Joints with Interbody Fusion Device, Posterior Approach, Anterior Column, Open Approach (ICD-10-PCS; principal; 2018-09-27 14:15)
PROC: 00NY0ZZ Release Lumbar Spinal Cord, Open Approach (ICD-10-PCS; principal; 2018-09-27 14:15)
PROC: 0SG1071 Fusion of 2 or more Lumbar Vertebral Joints with Autologous Tissue Substitute, Posterior Approach, Posterior Column, Open Approach (ICD-10-PCS; principal; 2018-09-27 14:15)
PROC: 4A1004G Monitoring of Central Nervous Electrical Activity, Intraoperative, Open Approach (ICD-10-PCS; principal; 2018-09-27 14:15)
PROC: 8E0WXBZ Computer Assisted Procedure of Trunk Region (ICD-10-PCS; principal; 2018-09-27 14:15)
DX: M48.061 Spinal stenosis, lumbar region without neurogenic claudication (principal); I48.91 Unspecified atrial fibrillation; M47.26 Other spondylosis with radiculopathy, lumbar region; M71.30 Other bursal cyst, unspecified site; I10 Essential (primary) hypertension; E78.00 Pure hypercholesterolemia, unspecified; G47.33 Obstructive sleep apnea (adult) (pediatric); E11.9 Type 2 diabetes mellitus without complications; R01.1 Cardiac murmur, unspecified; Z96.652 Presence of left artificial knee joint; Z86.73 Personal history of transient ischemic attack (TIA), and cerebral infarction without residual deficits
CPT/HCPCS: 97110-GP; 97116-GP; 97161-GP; 97165-GO; 97530-GO; 97530-GP; 97535-GO; C1713; J0171; J0690; J1170; J1650; J2250; J2270; J2274; J2704; J3010

== ENCOUNTER → 2019-03-02 | Outpatient (CLI) | payer OTHER | LOC: FIMAGING 11:02 | PROVIDERS: ATTEND Orthopaedic Surgery Sports Medicine | DX: Z01.818 Encounter for other preprocedural examination (principal); M19.011 Primary osteoarthritis, right shoulder ==